=== PATIENT | male | born 1950 | race Native Hawaiian/Other Pacific Islander ===

== ENCOUNTER 2016-04-22 12:56 | Emergency (ER) | payer OTHER ==
[~2016-04-22] VITALS: Ht 180.3 cm; Wt 99.8 kg
[~2016-04-22 12:56] MED LIST: ALBUAER5 INH; ALBUTEROL0.083 % IN; AMLO10TA PO; BUDESUS8 INH; CETI10TA PO; CHANTIX STARTIN0.5 & OR; CIPR500T PO; CLONIDINE0.2 MG; DALIRESP500 MC1 OR; DIAZEPAM10 M2 PO; DIAZEPAM10 MG PO; FLOVENT HFA110 MCG IN; FURO20TA67 PO; HYDR-2748 PO; HYDR10TA47 PO; IPRATROPIUM/; IPRATROPIUM/ IN; K-TAB20 MEQ PO; LEVO0.0218 PO; LIDOPATCH TOP; LORTAB 10-325 M1 TAB PO; METOCLOPRAM10 MG OR; METOPROLOL25 M1 OR; METOPROLOL25 M1 PO; MOBIC15 MG OR; NEXIUM40 M1 OR; OMEP40CA PO; PANT40TA PO; POTA20TA4 PO; POTASSIUM25 MEQ OR; PREDNISONE10 M1 OR; PREDNISONE2.5 MG OR; PROM25TA52 PO; RANI150T78 PO; REQUIP XL2 MG OR; RLFLU500T PO; SALAGEN5 MG OR; SOMA350 MG PO; SPIR25TA66 PO; TAMS0.4C PO; Z-PAK PO; ZOFRAN8 MG OR
[2016-04-22] MEDS ORDERED: TIROSINT25 MCG OR (13:16)
[2016-04-22] MEDS ORDERED: [UNRECOGNIZED DRUG - OTHER] OR (13:17)
[2016-04-22] MEDS ORDERED: PRED5TAB3 PO (13:17)
[2016-04-22 15:17] LABS: POTASSIUM 4.6 mmol/L (3.6-5.2)
[2016-04-22 15:49] VITALS: BP 189/92
== END 2016-04-22 15:50 | disposition home or self-care (01) ==
LOC: ED 12:56
PROVIDERS: Specialist
DX: J44.9 Chronic obstructive pulmonary disease, unspecified (principal); J40 Bronchitis, not specified as acute or chronic; B96.89 Other specified bacterial agents as the cause of diseases classified elsewhere; R06.2 Wheezing; Z79.899 Other long term (current) drug therapy
CPT/HCPCS: 36415; 36600; 80053; 80307; 81000; 82805; 83605; 83735; 83880; 84100; 96374; 99284; G0479; J2930

== ENCOUNTER 2016-05-10 18:48 | Emergency (ER) | payer OTHER ==
[~2016-05-10] VITALS: Ht 180.3 cm; Wt 99.8 kg
[~2016-05-10 18:48] MED LIST changes: +PRED5TAB3 PO; +TIROSINT25 MCG OR; +[UNRECOGNIZED DRUG - OTHER] OR
[2016-05-10 20:22] LABS: PLATELET COUNT 286 K/uL (142-355)
[2016-05-10 20:37] LABS: SODIUM 134 mmol/L (136-145)
[2016-05-10 21:29] LABS: PARTIAL THROMBOPLASTIN TIME 31.4 SECONDS (24.5-33.6)
[2016-05-10 22:22] VITALS: BP 156/84; TEMP 98.5
== END 2016-05-10 22:31 | disposition home or self-care (01) ==
LOC: ED 18:48
DX: K52.89 Other specified noninfective gastroenteritis and colitis (principal); E86.9 Volume depletion, unspecified; R11.2 Nausea with vomiting, unspecified; R10.84 Generalized abdominal pain; R00.0 Tachycardia, unspecified; I45.19 Other right bundle-branch block
CPT/HCPCS: 36415; 80053; 82150; 82550; 83690; 84484; 85027; 85610; 85730; 93005; 96361; 96374; 99284; J2405

== ENCOUNTER 2016-08-12 10:07 | Outpatient (CLI) | payer OTHER ==
[2016-08-12 10:43] LABS: PLATELET COUNT 277 K/uL (142-355)
== END 2016-08-12 19:43 | disposition home or self-care (01) ==
LOC: LABW 10:07
PROVIDERS: Surgery
DX: Z01.812 Encounter for preprocedural laboratory examination (principal); I65.23 Occlusion and stenosis of bilateral carotid arteries
CPT/HCPCS: 36415; 80048; 85027

== ENCOUNTER 2016-09-11 11:57 | Observation (INO) | payer OTHER ==
[~2016-09-11] VITALS: Ht 180.3 cm; Wt 100.3 kg
[2016-09-11] VITALS (9 sets, daily range): BP systolic 133–176; BP diastolic 64–85; TEMP 97.6–98.6; Ht 180.3 cm; Wt 100.3 kg
[2016-09-11 12:25] LABS: PLATELET COUNT 296 K/uL (142-355)
[2016-09-11 12:39] LABS: POTASSIUM 3.9 mmol/L (3.6-5.2)
[2016-09-11 12:41] LABS: PARTIAL THROMBOPLASTIN TIME 38.2 SECONDS (24.5-33.6)
--- NOTE | 2016-09-11 14:00 | NUR ---
PT TO FLOOR FROM ER AT THIS TIME VIA WC. PT ORIENTED TO ROOM AND CONTROLS. PT DENIES CP AT THIS TIME. C/O DIZZINESS THAT COMES AND GOES. TELE MONITORED AND PVC'S NOTED. NO CHANGES FROM EKG IN ER. TRAY PROVIDED TO PT. IV INTACT TO R AC. ASSESSMENT COMPLETE.
[2016-09-11] MEDS ORDERED: LORA1TAB17 PO (15:49)
[2016-09-11] MEDS ORDERED: DALIRESP500 MC1 PO (15:51)
[2016-09-11] MEDS ORDERED: OXYC10TAB PO (15:55)
[2016-09-11] MEDS ORDERED: TAMS0.4C PO (16:00)
[2016-09-11] MEDS ORDERED: CRESTOR20 MG PO (16:01)
[2016-09-11] MEDS ORDERED: MECLIZINE25 M1 PO (16:04)
[2016-09-11] MEDS ORDERED: OMEP40CA PO (16:07)
[2016-09-11] MEDS ORDERED: ASPIRIN325 M1 PO (16:09)
[2016-09-11] MEDS ORDERED: ALBUTEROL0.083 % IN (16:12)
[2016-09-12] VITALS: BP 118/68; TEMP 97.6
[2016-09-12 04:00] VITALS: BP 133/72; TEMP 97.6
[2016-09-12 05:13] LABS: PLATELET COUNT 269 K/uL (142-355)
[2016-09-12 06:42] LABS: POTASSIUM 3.4 mmol/L (3.6-5.2)
[2016-09-12 08:00] VITALS: BP 129/70; TEMP 97.7
--- NOTE | 2016-09-12 10:15 | NUR ---
IV SITE D/C'D WITH TIP INTACT AND SITE CARE DONE. D/C INSTRUCTIONS GIVEN TO PT AND HE VERBALIZES UNDERSTANDING. PT INSTRUCTED NOT TO TAKE HIS ASA, ZYRTEC, AND METOPROLOL BECAUSE HE TOOK THIS MORNING ALREADY. PT VERBALIZES UNDERSTANDING. PT OUT VIA W/C WITH NAD.
== END 2016-09-12 10:20 | disposition home or self-care (01) ==
LOC: ED 11:57 → MED/SURG 13:23
PROVIDERS: Internal Medicine; ADMIT Emergency Medicine
DX: R07.89 Other chest pain (principal); I10 Essential (primary) hypertension; R06.02 Shortness of breath
CPT/HCPCS: 36415; 80053; 82550; 82553; 82570; 83735; 83880; 84300; 84443; 84484; 85027; 85610; 85730; 93005; 94640; 94664; 94760; 96372; 96374; 96375; 99220; 99284; G0378; J1650; J2060; J2405; J3490

== ENCOUNTER 2016-09-26 08:27 | Outpatient (CLI) | payer OTHER ==
[~2016-09-26 08:27] MED LIST changes: +ASPIRIN325 M1 PO; +CRESTOR20 MG PO; +DALIRESP500 MC1 PO; +LORA1TAB17 PO; +MECLIZINE25 M1 PO; +OXYC10TAB PO
== END 2016-09-26 19:26 | disposition home or self-care (01) ==
LOC: US 08:27
DX: R22.1 Localized swelling, mass and lump, neck (principal); R10.84 Generalized abdominal pain

== ENCOUNTER 2016-11-21 13:38 | Outpatient (CLI) | payer OTHER | END 2016-11-21 15:00 | disposition home or self-care (01) | LOC: CT 13:38 | DX: R93.8 Abnormal findings on diagnostic imaging of other specified body structures (principal) ==

== ENCOUNTER 2017-08-23 21:34 | Emergency (ER) | payer OTHER ==
[~2017-08-23] VITALS: Ht 180.3 cm; Wt 93.9 kg
[2017-08-23] MEDS ORDERED: ONDA4TAB3 PO (22:04)
[2017-08-23] MEDS ORDERED: DIAZEPAM10 MG PO (22:04)
[2017-08-23] MEDS ORDERED: CLOPIDOGREL75 MG PO (22:04)
[2017-08-23] MEDS ORDERED: ACID REDUCER150 M1 PO (22:07)
[2017-08-23] MEDS ORDERED: DIFLUCAN50 MG PO (22:07)
[2017-08-23] MEDS ORDERED: NITROSTAT0.4 MG SL (22:08)
[2017-08-23 23:18] LABS: PLATELET COUNT 417 K/uL (142-355)
[2017-08-23 23:36] LABS: PARTIAL THROMBOPLASTIN TIME 40.5 SECONDS (24.5-33.6)
[2017-08-23 23:53] VITALS: BP 137/87; TEMP 98.7
== END 2017-08-23 23:55 | disposition home or self-care (01) ==
LOC: ED 21:34
PROVIDERS: Specialist
DX: R04.0 Epistaxis (principal); Z98.890 Other specified postprocedural states
CPT/HCPCS: 36415; 85027; 85610; 85730; 99283

== ENCOUNTER 2017-09-21 10:40 | Emergency (ER) | payer OTHER ==
[~2017-09-21] VITALS: Ht 180.3 cm; Wt 93.9 kg
[~2017-09-21 10:40] MED LIST changes: +ACID REDUCER150 M1 PO; +CLOPIDOGREL75 MG PO; +DIFLUCAN50 MG PO; +NITROSTAT0.4 MG SL; +ONDA4TAB3 PO
[2017-09-21 11:39] LABS: PLATELET COUNT 287 K/uL (142-355)
[2017-09-21 11:47] LABS: POTASSIUM 3.9 mmol/L (3.6-5.2)
[2017-09-21 12:11] VITALS: BP 152/80; TEMP 99.3
== END 2017-09-21 12:13 | disposition home or self-care (01) ==
LOC: ED 10:40
DX: T78.3XXA Angioneurotic edema, initial encounter (principal); T63.461A Toxic effect of venom of wasps, accidental (unintentional), initial encounter; J44.9 Chronic obstructive pulmonary disease, unspecified
CPT/HCPCS: 36415; 80053; 85027; 94664; 96374; 99283; J2930

== ENCOUNTER 2017-10-31 12:48 | Emergency (ER) | payer OTHER ==
[~2017-10-31] VITALS: Ht 180.3 cm; Wt 93.9 kg
[2017-10-31 13:42] LABS: PLATELET COUNT 316 K/uL (142-355)
[2017-10-31 13:48] LABS: POTASSIUM 4.3 mmol/L (3.6-5.2)
[2017-10-31 15:44] VITALS: BP 158/82; TEMP 98.8
== END 2017-10-31 15:44 | disposition home or self-care (01) ==
LOC: ED 12:48
DX: J44.1 Chronic obstructive pulmonary disease with (acute) exacerbation (principal)
CPT/HCPCS: 36415; 80053; 85027; 94664; 99283

== ENCOUNTER 2018-05-14 15:09 | Emergency (ER) | payer OTHER ==
[~2018-05-14] VITALS: Ht 180.3 cm; Wt 93.9 kg
[2018-05-14 15:59] LABS: PLATELET COUNT 361 K/uL (142-355)
[2018-05-14 16:04] LABS: POTASSIUM 4.5 mmol/L (3.6-5.2); SODIUM 135 mmol/L (136-145)
[2018-05-14 17:30] VITALS: BP 150/78; TEMP 98
== END 2018-05-14 17:30 | disposition home or self-care (01) ==
LOC: ED 15:09
PROVIDERS: Emergency Medicine
DX: J44.1 Chronic obstructive pulmonary disease with (acute) exacerbation (principal); J40 Bronchitis, not specified as acute or chronic; R00.0 Tachycardia, unspecified; I45.19 Other right bundle-branch block
CPT/HCPCS: 80053; 82550; 82553; 84484; 85027; 93005; 94664; 96374; 99284; J2930

== ENCOUNTER 2018-07-10 20:06 | Emergency (ER) | payer OTHER ==
[~2018-07-10] VITALS: Ht 33 cm; Wt 0.5 kg
[2018-07-10 20:59] LABS: PLATELET COUNT 332 K/uL (142-355)
[2018-07-10 21:47] LABS: POTASSIUM 3.6 mmol/L (3.6-5.2); SODIUM 141 mmol/L (136-145)
[2018-07-10 22:35] VITALS: BP 177/83; TEMP 98.5
== END 2018-07-10 22:44 | disposition home or self-care (01) ==
LOC: ED 20:06
PROVIDERS: Family Medicine
DX: J44.1 Chronic obstructive pulmonary disease with (acute) exacerbation (principal); R00.0 Tachycardia, unspecified; I45.19 Other right bundle-branch block
CPT/HCPCS: 36415; 80053; 82550; 82553; 83880; 84484; 85027; 85379; 93005; 94664; 96374; 99284; J2930

== ENCOUNTER 2018-10-23 11:22 | Outpatient (CLI) | payer OTHER | END 2018-10-23 11:40 | disposition short-term general hospital (02) | LOC: AMB 11:22 | DX: R41.0 Disorientation, unspecified (principal); R11.0 Nausea; R10.9 Unspecified abdominal pain | CPT/HCPCS: A0425; A0427 ==

== ENCOUNTER 2019-05-19 12:03 | Outpatient (CLI) | payer OTHER ==
[2019-05-19 12:35] LABS: PLATELET COUNT 298 K/uL (142-355)
== END 2019-05-19 22:42 | disposition home or self-care (01) ==
LOC: LABW 12:03
PROVIDERS: Nurse Practitioner
DX: I10 Essential (primary) hypertension (principal); M62.838 Other muscle spasm; E87.6 Hypokalemia
CPT/HCPCS: 36415; 80053; 85027

== ENCOUNTER 2019-05-19 12:26 | Emergency (ER) | payer OTHER | END 2019-05-19 12:51 | disposition home or self-care (01) | LOC: ED 12:26 | DX: K58.9 Irritable bowel syndrome, unspecified (principal); E87.6 Hypokalemia | CPT/HCPCS: 99281 ==

== ENCOUNTER 2019-05-20 18:34 | Outpatient (CLI) | payer OTHER | END 2019-05-20 18:37 | disposition short-term general hospital (02) | LOC: AMB 18:34 | DX: I10 Essential (primary) hypertension (principal) | CPT/HCPCS: A0425; A0429 ==

== ENCOUNTER 2019-05-20 18:41 | Emergency (ER) | payer OTHER ==
[~2019-05-20] VITALS: Ht 180.3 cm; Wt 97.1 kg
[2019-05-20 19:42] LABS: PLATELET COUNT 310 K/uL (142-355)
[2019-05-20 19:45] LABS: POTASSIUM 3.5 mmol/L (3.6-5.2)
[2019-05-20 22:50] VITALS: BP 175/95; TEMP 98.2
== END 2019-05-20 22:50 | disposition home or self-care (01) ==
LOC: ED 18:41
PROVIDERS: Family Medicine
DX: K58.9 Irritable bowel syndrome, unspecified (principal); E87.6 Hypokalemia
CPT/HCPCS: 36415; 80053; 81000; 85027; 94664; 99282; 99283; J1100

== ENCOUNTER 2020-02-19 02:34 | Emergency (ER) | payer OTHER ==
[~2020-02-19] VITALS: Ht 180.3 cm; Wt 102.5 kg
[2020-02-19 03:22] LABS: POTASSIUM 3.9 mmol/L (3.6-5.2); SODIUM 136 mmol/L (136-145)
[2020-02-19 03:35] LABS: PLATELET COUNT 253 K/uL (142-355)
[2020-02-19 05:11] VITALS: BP 160/81; TEMP 99
== END 2020-02-19 05:25 | disposition home or self-care (01) ==
LOC: ED 03:43
PROVIDERS: Family Medicine
DX: J20.9 Acute bronchitis, unspecified (principal); J44.1 Chronic obstructive pulmonary disease with (acute) exacerbation; Z20.828 Contact with and (suspected) exposure to other viral communicable diseases
CPT/HCPCS: 36415; 80053; 82150; 82550; 82553; 83605; 83690; 83880; 84484; 85027; 85379; 87040; 87635; 93005; 94664; 96365; 96375; 99284; J0696; J2930; U0003

== ENCOUNTER 2020-02-21 14:47 | Inpatient (IN) | payer OTHER ==
[2020-02-21] VITALS (10 sets, daily range): BP systolic 154–194; BP diastolic 68–101; TEMP 97.6–98.7
[~2020-02-21] VITALS: Ht 180.3 cm; Wt 100.7 kg
[2020-02-21 15:36] LABS: PLATELET COUNT 335 K/uL (142-355)
[2020-02-21 15:44] LABS: POTASSIUM 4.7 mmol/L (3.6-5.2)
[2020-02-22 02:05] VITALS: BP 176/97; TEMP 99; Ht 180.3 cm; Wt 100.7 kg
== END 2020-02-22 00:59 | disposition left against medical advice (07) | DRG 192 ==
LOC: ED 14:47 → ICU 18:15
PROVIDERS: ADMIT Family Medicine
DX: J44.1 Chronic obstructive pulmonary disease with (acute) exacerbation (principal); I10 Essential (primary) hypertension
CPT/HCPCS: 36600; 80053; 81000; 82805; 83880; 84484; 85027; 87502; 93005; 94660; 94664; 96365; 96375; 99284; J0360; J0456; J0696; J1100; J1200; J1630; J2060; J2930; J3490